=== PATIENT | female | born 1940 | race Caucasian/White ===

== ENCOUNTER 2016-06-13 21:34 | Emergency (ER) | payer OTHER, MEDICARE ==
[~2016-06-13] VITALS: Ht 165.1 cm; Wt 66.2 kg
[2016-06-13 23:10] LABS: BASOPHIL COUNT 0.1 K/uL (0-0.1); EOSINOPHIL (%) 0 % (0-5); HEMATOCRIT 43.1 % (36.0-46.0); IMMATURE GRANULOCYTE (%) 0.6 % (0.0-0.7); IMMATURE GRANULOCYTE COUNT 0.1 K/uL; INSTRUMENT ABS NEUTROPHIL CT 11.9 K/uL; LYMPHOCYTE COUNT 1.1 K/uL (1.0-2.8); MCH 30.9 PG (29.0-34.0); MCHC 32.7 G/DL (30.0-36.0); MCV 94.5 FL (83-99); MEAN PLAT.VOLUME 10.2 uM^3 (9.5-12.4); MONOCYTE (%) 9.2 % (3-12); MONOCYTE COUNT 1.3 K/uL (0-0.8); NEUTROPHIL (%) 81.8 % (45-76); NEUTROPHIL COUNT 11.9 K/uL (1.8-6.4); PLATELET COUNT 314 K/uL (156-360); RBC DIS.WIDTH-CV 12.8 % (11.8-14.6); RED BLOOD COUNT 4.56 M/uL (3.80-5.20); WHITE BLOOD COUNT 14.5 K/uL (4.1-10.2)
[2016-06-13 23:29] LABS: CHLORIDE 97 mEq/L (99-109); POTASSIUM 4.5 mEq/L (3.7-5.4); SODIUM 135 mEq/L (136-147)
[2016-06-13 23:30] LABS: TROP-I INTERPRETATION NEGATIVE; TROPONIN-I < 0.01 ng/mL (0.0-0.30)
[2016-06-13 23:31] LABS: GLUCOSE 122 mg/dL (70-99)
[2016-06-13 23:32] LABS: ANION GAP 12 MEQ/L (2-14)
[2016-06-13 23:33] LABS: TOTAL BILIRUBIN 1.4 mg/dL (0.0-1.0)
[2016-06-13 23:34] LABS: ALKALINE PHOSPHATASE 76 IU/L (3-129)
[2016-06-13 23:35] LABS: GFR ESTIMATE (CALCULATED) > 59 mL/min/
[2016-06-13 23:36] LABS: UREA NITROGEN (BUN) 10 mg/dL (9-23)
[2016-06-13 23:38] LABS: CREATINE KINASE 30 IU/L (1-294); TOTAL CK 30 IU/L (1-294)
[2016-06-13 23:43] LABS: CK-MB 0.5 ng/mL (0.0-4.9)
[2016-06-14] MEDS ORDERED: ZOFRAN ODT4 MG PO (02:27)
[2016-06-14] MEDS ORDERED: TRAMADOL HCL50 MG PO (02:27)
[2016-06-14 02:53] VITALS: BP 149/82
== END 2016-06-14 02:54 | disposition home or self-care (01) ==
LOC: EME 21:34
PROVIDERS: Emergency Medicine
DX: S42.292A Other displaced fracture of upper end of left humerus, initial encounter for closed fracture (principal); R11.0 Nausea; M54.2 Cervicalgia; M54.6 Pain in thoracic spine; W18.39XA Other fall on same level, initial encounter; M79.632 Pain in left forearm; M79.642 Pain in left hand; Z91.14 Patient's other noncompliance with medication regimen; Z87.891 Personal history of nicotine dependence
CPT/HCPCS: 71010; 72125; 73030; 73060; 73090; 73130; 80053; 81003; 82550; 82553; 84484; 85025; 93005; 99281; 99285; J2405; J3010; J7030